=== PATIENT | male | born 1960 | race African-American/Black ===

== ENCOUNTER 2016-04-16 15:14 | Emergency (ER) | payer MEDICARE, MEDICAID ==
[2016-04-16 15:33] VITALS: TEMP 98.3; BMI 51.4
[2016-04-16] MEDS ORDERED: MORPHINE 4 MG/ML INJECTION IV ONE (15:49)
[2016-04-16] MEDS ORDERED: ONDANSETRON HCL 4 MG/2 ML VIAL IV STA (15:49)
--- NOTE | 2016-04-16 15:52 | EDPRACDOC ---
- General Information Chief Complaint: Chest Pain Stated Complaint: CHEST PAIN Time Seen by Provider: 04/16/16 15:42 Information Source: Patient Mode of Arrival: Car Home Medications: Home Medications Amlodipine [Norvasc] 5 mg PO DAILY 02/24/13 Alprazolam [Xanax] 2 mg PO TID PRN 12/13/14 Furosemide [Lasix] 20 mg PO DAILY 07/02/15 Oxycodone HCl [Roxicodone] 10 mg PO Q8H PRN 07/02/15 Cyclobenzaprine HCl [Flexeril] 5 mg PO Q8H PRN #20 tablet 04/16/16 Lisinopril/Hydrochlorothiazide [Lisinopril-Hctz 10-12.5 mg Tab] 1 tab PO DAILY 04/16/16 Metformin HCl 1,000 mg PO BID 04/16/16 Methylphenidate HCl 20 mg PO BID 04/16/16 Oxycodone HCl [Roxicodone] 5 mg PO Q4-6H PRN #15 tablet 04/16/16 Quetiapine Fumarate [Seroquel] 200 mg PO QHS 04/16/16 Allergies/Adverse Reactions: Allergies Allergy/AdvReac Type Severity Reaction Status Date / Time hydrocodone Allergy Nausea/Vomi Verified 07/02/15 10:02 ting - History of Present Illness Onset: 1 WEEK HPI: PT PRESENTS WITH PROGRESSIVE RIGHT ANTERIOR CHEST PAIN WORSE WITH MOTION OF RIGHT ARM OR DEEP BREATHING. Chest Pain Location: Reports: Right Chest Pain Radiation: Reports: Shoulder (R), Arm (R) Symptoms Occur: Reports: At Rest Cardiac Risk Factors: Reports: Hyperlipidemia, Hypertension, Diabetes Pain Status: Present Now Pain Description: Reports: Sharp, Aching Pain Severity: Moderate Pain Worsens With: Reports: Breathing, Movement Pain Improves With: Reports: Nothing Associated Signs and Symptoms: Reports: SOB. 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 - Social Medical History Smoking Status: Heavy tobacco smoker (5 or more cigarettes/day or daily pipe/ cigar) Lives In: Home EDM Review of Systems - Review of Systems ROS Negative Except as Marked: Yes All systems reviewed and were negative except as marked Constitutional: negative: Fever Respiratory: Shortness of Breath Cardiovascular: Chest Pain (RIGHT UPPER CHEST WALL) - Physical Exam Constitutional: Alert Oriented to: Time, Person, Place Last recorded Vital Signs: Last Vital Signs Temp 98.3 F 04/16/16 15:22 Pulse 85 04/16/16 15:22 Resp 18 04/16/16 15:22 BP 193/92 H 04/16/16 15:22 Pulse Ox 96 04/16/16 15:22 Oxygen Pulse Oxygen Saturation 96 O2 Device Room Air Oxygen Flow Rate Fraction of Inspired Oxygen ( FIO2) - HEENT Head: negative: Deformity, Laceration Eye Exam: negative: Conjunctival Injection, Pale Conjunctiva Oropharynx: negative: Membranes Dry Nose: negative: Congestion, Discharge Neck: negative: Limited ROM - Respiratory/Cardiovascular Respiratory: Normal - CTA. negative: Accessory Muscle Use, Diminished, Tachypnea Cardiovascular: negative: Bradycardia, Tachycardia, Irregular - GI Auscultation: Normal Palpation: Normal - Musculoskeletal Extremities: Pedal Pulse (PALPABLE RIGHT), Other (LEFT LOWER LEG SURGICALLY ABSENT.). negative: Calf Tenderness - Integumentary Skin: Warm, Dry. negative: Rash - Neurologic Memory Impaired: Normal Motor Function: Normal Mood Description: Anxious, Appropriate Thought: Coherent Perception: Normal ED Chest Pain Exam - Respiratory/Cardiovascular Chest Palpation: Tender. negative: Reproduces Pain - Other Exam Other Exam Findings: RESISTANCE TO MOTION WITH ACTIVATION OF RIGHT PEC MUSCLE RECREATES PAIN. - Action Patient received Aspirin within last 24 hours?: No ASA given in the ED: No Aspirin therapy held due to: Other-specify below* (NON CARDIAC CHEST PAIN) - Results 04/16/16 15:38 04/16/16 15:38 - EKG EKG #1 EKG Time: 15:25 -: Yes EKG interpreted by me Rate: bpm: 87 [place]: Normal Rhythm: NSR Block: None Hypertrophy: None ST: Normal Decision Time to Discharge: 16:58 - Departure Yes I personally saw and evaluated the patient. Disposition: Home Condition: Stable Final Diagnosis: Right-sided chest pain Instructions: Chest Pain (ED), Chest Wall Pain Education/Counseling Given To: Patient Education/Counseling Given Regarding: Diagnosis, Treatment, Prognosis, Follow Up Referrals: Titi Gomez MD [Primary Care Provider] - Call for Appointment Prescriptions: Cyclobenzaprine HCl [Flexeril] 5 mg PO Q8H PRN #20 tablet PRN Reason: Muscle Spasms Oxycodone HCl [Roxicodone] 5 mg PO Q4-6H PRN #15 tablet PRN Reason: Breakthrough Pain
[2016-04-16 16:05] LABS: AUTOMATED BASOPHIL 1.8 % (0-2); AUTOMATED LYMPH 26.9 % (17-44); AUTOMATED MONOCYTE 5.8 % (3-10); AUTOMATED NEUTROPHIL 64.5 % (45-76); MPV 8.3 fL (7.4-10.4)
--- NOTE | 2016-04-16 16:10 | DIRPT ---
CLINICAL DATA: Right-sided chest pain. Patient reports progressive right anterior chest pain, increased with motion of the right arm or deep breathing, for 1 week. EXAM: CHEST 2 VIEW COMPARISON: 07/02/2015 FINDINGS: Cardiac silhouette is normal in size and configuration. No mediastinal or hilar masses or evidence of adenopathy. Clear lungs. No pleural effusion or pneumothorax. The mild degenerative endplate osteophytes are noted along thoracic spine. Bony thorax otherwise unremarkable. IMPRESSION: No active cardiopulmonary disease. Electronically Signed By: José Real M.D. On: 04/16/2016 16:07
[2016-04-16 16:16] LABS: BLOOD UREA NITROGEN 16 MG/DL (9-20); CALC CORRECTED 9.1 MG/DL (8.4-10.2); CALCULATED OSMOLALITY 279 MOs/Kg (270-290); CHLORIDE 108 mEq/L (98-107); GLUCOSE 112 MG/DL (70-99); SODIUM LEVEL 144 mEq/L (137-146); TOTAL PROTEIN 7.2 G/DL (6.3-8.2)
[2016-04-16 16:21] LABS: PARTIAL THROMB. TIME 30.3 SEC (22-35)
[2016-04-16 17:09] VITALS: BP 143/73; PULSE 81
== END 2016-04-16 17:08 | disposition home or self-care (01) ==
LOC: ED 15:14
DX: R07.9 Chest pain, unspecified (principal); I10 Essential (primary) hypertension; E11.9 Type 2 diabetes mellitus without complications; Z89.512 Acquired absence of left leg below knee; F17.200 Nicotine dependence, unspecified, uncomplicated; Z79.899 Other long term (current) drug therapy
CPT/HCPCS: 36415; 71020; 80053; 84484; 85025; 85610; 85730; 93005; 96374; 96375; 99284; J2270; J2405